=== PATIENT | male | born 1985 | race Caucasian/White ===

== ENCOUNTER 2019-04-18 17:39 | Emergency (ER) | payer BC ==
[~2019-04-18] VITALS: Ht 195.6 cm; Wt 104.4 kg
[2019-04-18 18:34] VITALS: BP 134/86
--- NOTE | 2019-04-18 19:58 | NUR ---
TO U/S PER ANNABELLE
== END 2019-04-18 21:13 | disposition home or self-care (01) ==
LOC: ED 19:27
DX: S76.111A Strain of right quadriceps muscle, fascia and tendon, initial encounter (principal); B07.8 Other viral warts; M79.651 Pain in right thigh; Z87.891 Personal history of nicotine dependence; X58.XXXA Exposure to other specified factors, initial encounter; Y93.89 Activity, other specified; Y92.89 Other specified places as the place of occurrence of the external cause; Y99.8 Other external cause status
CPT/HCPCS: 99284